=== PATIENT | male | born 1975 | race Caucasian/White ===

== ENCOUNTER 2019-03-07 14:21 | Emergency (ER) | payer OTHER ==
[2019-03-07] MEDS ORDERED: oxyCODONE/Acetamin 5/325 MG* TAB PO ONE (14:44)
[2019-03-07] MEDS ORDERED: Ketorolac INJ* 30 MG/ML 1 ML VIAL IM ONE (14:44)
--- NOTE | 2019-03-07 14:44 | ED ---
GI/ HPI - HPI Summary HPI Summary: 44-year-old male presents with flank pain for past two days. He states his pain is greatest in his lower back. He denies any known injury. No saddle anesthesia. No loss of bowel or bladder. No urinary symptoms. Does has history of kidney stones and states that it feels different. No pain into legs. No weakness. Has been taking ibuprofen without relief. went to chiropractor yesterday without any relief. - History of Current Complaint Chief Complaint: EDBackInjuryPain Time Seen by Provider: 03/07/19 14:32 Stated Complaint: SEVERE FLANK PAIN PER PT Pain Intensity: 7 - Allergy/Home Medications Allergies/Adverse Reactions: Allergies Allergy/AdvReac Type Severity Reaction Status Date / Time No Known Allergies Allergy Verified 03/07/19 14:31 PMH/Surg Hx/FS Hx/Imm Hx Endocrine/Hematology History: Denies: Hx Anticoagulant Therapy Respiratory History: Denies: Hx Asthma Infectious Disease History: No Infectious Disease History: Denies: Traveled Outside the [place] in Last 30 Days - Family History Known Family History: Positive: Non-Contributory - Social History Alcohol Use: Occasionally Substance Use Type: Reports: None Review of Systems Negative: Fever Negative: Chest Pain Negative: Shortness Of Breath Negative: Abdominal Pain Positive: flank pain Positive: Myalgia - back pain All Other Systems Reviewed And Are Negative: Yes Physical Exam Triage Information Reviewed: Yes Vital Signs On Initial Exam: Initial Vitals Temp Pulse Resp BP Pulse Ox 97.1 F 73 16 126/88 98 03/07/19 14:27 03/07/19 14:27 03/07/19 14:27 03/07/19 14:27 03/07/19 14:27 Vital Signs Reviewed: Yes Appearance: Positive: Well-Appearing Skin: Positive: Warm, Dry Head/Face: Positive: Normal Head/Face Inspection Eyes: Positive: Normal, Conjunctiva Clear ENT: Positive: Pharynx normal Respiratory/Lung Sounds: Positive: Clear to Auscultation, Breath Sounds Present Cardiovascular: Positive: Normal, RRR Abdomen Description: Positive: Nontender, Soft, CVA Tenderness (L). Negative: CVA Tenderness (R) Bowel Sounds: Positive: Present Musculoskeletal: Positive: Other - tenderness in lower back, neg SLR, good pulses, sensation grossly intact Neurological: Positive: Normal Psychiatric: Positive: Normal Diagnostics - Vital Signs Vital Signs Temp Pulse Resp BP Pulse Ox 03/07/19 14:27 97.1 F 73 16 126/88 98 - Laboratory Result Diagrams: 03/07/19 14:43 03/07/19 14:43 Lab Statement: Any lab studies that have been ordered have been reviewed, and results considered in the medical decision making process. - Radiology abd Radiology Interpretation Completed By: Radiologist Summary of Radiographic Findings: IMPRESSION: 1. NO HYDRONEPHROSIS OR NEPHROLITHIASIS. 2. HEPATOMEGALY WITH FATTY INFILTRATION OF THE LIVER. 3. SPONDYLOLYSIS WITH SPONDYLOLISTHESIS AT L5-S1. GIGU Course/Dx - Course Course Of Treatment: 44-year-old male presents back pain for past 2 days. He states his pain is greatest in his lower back. He denies any known injury. No saddle anesthesia. No loss of bowel or bladder. No urinary symptoms. Does has history of kidney stones and states that it feels different. No pain into legs. No weakness. Has been taking ibuprofen without relief. went to chiropractor yesterday without any relief. On exam tenderness lower back and left flank. Negative straight leg raise. Neurovascularly intact. CT shows no stone. will discharge with medrol and flexeril. patient understand and agrees with plan. - Diagnoses Differential Diagnoses - Male: Ureteral Calculi, Urinary Tract Infection, Other - strain Provider Diagnoses: Back pain Discharge - Sign-Out/Discharge Documenting (check all that apply): Patient Departure Patient Received Moderate/Deep Sedation with Procedure: No - Discharge Plan Condition: Good Disposition: HOME Prescriptions: Cyclobenzaprine TAB* [Flexeril 10 MG TAB*] 10 mg PO TID PRN #21 tab PRN Reason: Pain - Moderate methylPREDNISolone [Medrol Dosepak 4 MG*] 4 mg PO .SEE FRED INSTRUCTION #1 packet Patient Education Materials: Back Pain (ED) Referrals: [facility] [place] [facility] [Outside] Additional Instructions: Follow directions on package for Medrol pack Take muscle relaxers three times a day Use ibuprofen or Tylenol for pain every 6 hours ice/heat area, move as much as possible Follow up with primary within 5 days Return to ED if develop any new or worsening symptoms - Billing Disposition and Condition Condition: GOOD Disposition: Home - Attestation Statements Provider Attestation: I was available for consult. This patient was seen by the SELENE. The patient was not presented to, seen by, or examined by me. -Everardo
[2019-03-07 14:55] LABS: ABS Basophils 0.1 10^3/ul (0-0.2); ABS Eosinophils 0.2 10^3/ul (0-0.6); ABS Lymphocytes 2.7 10^3/ul (1.0-4.8); ABS Monocytes 0.9 10^3/ul (0-0.8); Eosinophil % 1.7 %; Hematocrit 47 % (42-52); Hemoglobin 15.8 g/dL (14.0-18.0); Lymphocyte % 27.1 %; Mean Corpuscular HGB Conc 34 g/dL (31-36); Mean Corpuscular Hemoglobin 29 pg (27-31); Mean Corpuscular Volume 85 fL (80-94); Mean Platelet Volume 8.5 fL (7.4-10.4); Platelet Count 300 10^3/uL (150-450); Red Blood Count 5.54 10^6 /uL (4.18-5.48); Red Cell Distribution Width 14 % (10-15); White Blood Count 9.8 10^3/uL (3.5-10.8)
[2019-03-07 15:08] LABS: Albumin 4.7 g/dL (3.2-5.2); Albumin/Globulin Ratio 1.8 (1-3); BUN/Creatinine Ratio 15.8 (8-20); C Reactive Protein 3.87 mg/L (<8.01); Calcium 9.4 mg/dL (8.6-10.3); EGFR African American 85.2 (>60); EGFR Non-African American 70.4 (>60); Globulin 2.6 g/dL (2-4); Total Bilirubin 0.6 mg/dL (0.2-1.0); Total Protein 7.3 g/dL (6.4-8.9)
[2019-03-07 15:51] VITALS: BP 132/82
[2019-03-07 15:59] LABS: Potassium 3.9 mmol/L (3.5-5.0)
== END 2019-03-07 15:53 | disposition home or self-care (01) ==
LOC: ED 14:21
DX: M54.9 Dorsalgia, unspecified (principal); M43.06 Spondylolysis, lumbar region; R10.84 Generalized abdominal pain
CPT/HCPCS: 36415; 74176; 80053; 85025; 86140; 96372; 99282; A9270-GY; J1885